=== PATIENT | male | born 2000 | race Caucasian/White ===

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

== ENCOUNTER 2022-02-03 16:47 | Emergency (ER) | payer MEDICAID ==
[~2022-02-03] VITALS: Ht 165.1 cm; Wt 61.0 kg
[~2022-02-03 16:47] MED LIST: NAPR-1176 MT
[2022-02-03] MEDS ORDERED: ACETAMINOPHEN 325MG TABLET PO ONE (18:15)
[2022-02-03] MEDS ORDERED: IBUPROFEN 400MG TABLET PO ONE (18:15)
[2022-02-03 20:49] VITALS: BP 130/79
== END 2022-02-03 20:52 | disposition home or self-care (01) ==
LOC: ER 16:47
DX: S82.891A Other fracture of right lower leg, initial encounter for closed fracture (principal); W01.0XXA Fall on same level from slipping, tripping and stumbling without subsequent striking against object, initial encounter; Y93.66 Activity, soccer; Y92.322 Soccer field as the place of occurrence of the external cause
CPT/HCPCS: 29515; 73610; 73630; 99284